=== PATIENT | male | born 1975 | race Caucasian/White ===

== ENCOUNTER 2020-10-28 17:03 | Outpatient (CLI) | payer BC ==
[2020-10-28 17:32] LABS: Hemoglobin 17.3 g/dL (13.5-17.5); Mean Corpuscular HGB CONC 32.3 g/dL (32.0-36.0); Mean Corpuscular Hemoglobin 29.8 pg (27.0-33.0); Mean Corpuscular Volume 92.2 fl (81.2-95.1); Mean Platelet Volume 9.7 fl (7.4-10.4); Platelet Count 426 10x3/uL (150-450); RBC Distribution Width 13.1 % (11.5-14.5); White Blood Cell (WBC) Count 16.1 10x3/uL (3.5-10.5)
[2020-10-28 18:33] LABS: Lymphocytes 22 % (21-51); Monocytes 4 % (0-10); Myelocyte 6 % (0-0); Neutrophil 68 % (42-75)
[2020-10-28 18:34] LABS: Giant Platelets SLIGHT; MDiff Complete? YES; Platelet Morphology Comment Appears Adequate; RBC Morphology Normal; Reflex for Review?? YES
[2020-10-29 17:08] LABS: SARS-CoV-2 PCR by NAA Not Detected (NotDetected)
== END 2020-10-28 17:04 | disposition home or self-care (01) ==
LOC: LABBT 17:03
PROVIDERS: ATTEND Orthopaedic Surgery
DX: Z01.812 Encounter for preprocedural laboratory examination (principal); S46.311A Strain of muscle, fascia and tendon of triceps, right arm, initial encounter; Z20.822 Contact with and (suspected) exposure to COVID-19
CPT/HCPCS: 85025; 85060; U0003; U0005